=== PATIENT | male | born 1955 | race Caucasian/White ===

== ENCOUNTER 2020-08-02 18:24 | Emergency (ER) | payer MEDICARE, OTHER ==
[~2020-08-02] VITALS: Ht 170.2 cm; Wt 108.6 kg
[2020-08-02] MEDS ORDERED: CLIN300C11 PO (19:52)
--- NOTE | 2020-08-02 19:53 | ED Integumentary General ---
General Chief Complaint: Skin/Wound Problems Stated Complaint: SORE ON LEFT LEG,INFECTION SYMPTOMS Source: patient Exam Limitations: no limitations History of Present Illness Date Seen by Provider: Aug 02, 2020 Time Seen by Provider: 19:00 Initial Comments The patient is a very pleasant 65-year-old male presents for evaluation of a sor e to his left leg and concern for a cellulitis. He states that his family size leg and they were concerned about a. He is not having any pain. He has chronic vascular insufficiency with redness and swelling to his legs and has had arterial stents placed in his legs in the past. He is not currently having any pain, fevers or chills, or any other complaints is simply the appearance of his leg that his family was concerned about. He states he has had a similar appearance in the past that responded very well antibiotics and that is what he would like. He is alert and oriented 4, calm, and appears to be in no distress this time. Timing/Duration: other (for a few days) Severity: moderate Possible Cause: no cause identified Associated Symptoms: other (skin redness to bilateral legs which the patient states chronic and at baseline) Allergies and Home Medications Patient Home Medication List Home Medication List Reviewed: Yes Review of Systems Review of Systems Constitutional: no symptoms reported EENTM: no symptoms reported Respiratory: no symptoms reported Cardiovascular: no symptoms reported Gastrointestinal: no symptoms reported Genitourinary: no symptoms reported Musculoskeletal: no symptoms reported Skin: other (chronic redness to both legs bilaterally, skin lesion to the left lateral lower leg with a small open wound) Psychiatric/Neurological: No Symptoms Reported Endocrine: No Symptoms Reported Hematologic/Lymphatic: No Symptoms Reported All Other Systems Reviewed Negative Unless Noted: Yes Past Iuuuvtc-Wuihmy-Yznkhi Hx Past Med/Social Hx: Reviewed Nursing Past Med/Soc Hx Patient Social History Recent Foreign Travel: No Contact w/Someone Who Travel: No Physical Exam Vital Signs Capillary Refill : General Appearance: WD/WN, no apparent distress HEENT: PERRL/EOMI, pharynx normal Neck: non-tender, full range of motion, supple Cardiovascular: regular rate, rhythm, no edema, no gallop, no JVD Respiratory: lungs clear, normal breath sounds, no respiratory distress, no accessory muscle use Extremities: non-tender, normal capillary refill, pedal edema (patient states chronic) 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 Advised the patient to follow up with his PCP in the next 2-3 days and to return to the emergency Department immediately for new or worsening symptoms. Workup fails to reveal any emergent pathology and the patient is stable for discharge home at this time. Departure Impression Primary Impression: Cellulitis Disposition: HOME, SELF-CARE Condition: Stable Departure-Patient Inst. Decision time for Depature: 19:51 Referrals: NO,LOCAL PHYSICIAN (PCP) Primary Care Physician [facility] Patient Instructions: Cellulitis (Skin Infection), Adult (DC) Add. Discharge Instructions: Keep a bandage over the small open wound on her left leg. Take the prescribed antibiotics as directed. Return to the emergency Department immediately for new or worsening symptoms. Follow-up with your doctor in the next 2-3 days. Scripts Clindamycin HCl (Clindamycin HCl) 300 Mg Capsule 300 MG PO Q6H for 10 Days, #40 CAP Prov: LONDON GONZALEZ DO 08/02/20 LONDON GONZALEZ DO Aug 02, 2020 19:53
[2020-08-02 20:00] VITALS: BP 111/69
== END 2020-08-02 20:00 | disposition home or self-care (01) ==
LOC: ER FS 18:28
DX: L03.116 Cellulitis of left lower limb (principal); L03.115 Cellulitis of right lower limb